=== PATIENT | female | born 1960 | race Caucasian/White ===

== ENCOUNTER → 2016-07-08 | Outpatient (CLI) | payer BC ==
[~2016-07-08] MED LIST: ASPIRIN E.C. 8181 MG PO; CELEXA20 MG PO; FLAXSEED OIL1 CAP PO; METFORMIN PO; MULTIPLE VITAMI1 CAP PO; OMEGA 31000 MG PO; VITAMIN D35000 IU PO; XANAX0.5 MG PO; ZOCOR80 MG PO
== END ==
LOC: LAB 07:10
DX: E11.9 Type 2 diabetes mellitus without complications (principal); I10 Essential (primary) hypertension; E78.2 Mixed hyperlipidemia

== ENCOUNTER → 2016-07-29 | Outpatient (CLI) | payer BC | LOC: MAMMO 11:21 | DX: Z12.31 Encounter for screening mammogram for malignant neoplasm of breast (principal) | CPT/HCPCS: G0202 ==

== ENCOUNTER → 2017-08-04 | Outpatient (CLI) | payer BC ==
[2013-05-31 08:30] VITALS: BP 132/81
[2017-08-04 09:43] LABS: HEMATOCRIT 43.3 % (37.0-47.0); HEMOGLOBIN 14.7 g/dL (12.5-16.0); MEAN PLATELET VOLUME 11.1 fl (7.4-10.4); RED BLOOD COUNT 4.77 M/mm3 (4.10-5.30); RED CELL DISTRIBUTION WIDTH 13.4 % (11.5-14.5); WHITE BLOOD COUNT 7.9 K/mm3 (4.8-10.8)
[2017-08-04 09:54] LABS: ALBUMIN 4.3 g/dL (3.5-5.0); BUN/CREATININE RATIO 20.7 (6.0-26.0); CALCIUM 9.5 mg/dL (8.4-10.2); POTASSIUM 4.4 mmol/L (3.6-5.0); TOTAL BILIRUBIN 0.4 mg/dL (0.2-1.3); TOTAL PROTEIN 7.5 g/dL (6.3-8.2)
== END ==
LOC: LAB 09:29
PROVIDERS: Family Medicine
DX: E11.9 Type 2 diabetes mellitus without complications (principal); E78.2 Mixed hyperlipidemia

== ENCOUNTER → 2020-04-09 | Outpatient (CLI) | payer BC ==
[2013-05-31 08:30] VITALS: BP 132/81
[2020-04-09 16:12] LABS: EOS # 0.4 (0.04-0.40); EOS % 3.3 % (1.0-5.0); HEMATOCRIT 43.1 % (37.0-47.0); HEMOGLOBIN 14.8 g/dL (12.5-16.0); MEAN CELL VOLUME 90 fl (78-100); MEAN CORPUSCULAR HEMOGLOBIN 31 pg (27-31); MEAN CORPUSCULAR HGB CONC 34 g/dL (33-37); MEAN PLATELET VOLUME 10.7 fl (7.4-10.4); NEU # 6.2 (1.40-6.50); PLATELET COUNT 269 K/mm3 (130-400); RED CELL DISTRIBUTION WIDTH 13.2 % (11.5-14.5); WHITE BLOOD COUNT 12.2 K/mm3 (4.8-10.8)
[2020-04-09 16:17] LABS: LYMPH# 4.6 (1.50-4.00)
[2020-04-09 16:18] LABS: ALBUMIN 4.5 g/dL (3.4-4.8); POTASSIUM 4.3 mmol/L (3.5-5.1)
[2020-04-09 16:19] LABS: CALCIUM 9.9 mg/dL (8.3-10.5)
[2020-04-09 16:21] LABS: TOTAL PROTEIN 7.5 g/dL (6.2-8.1)
[2020-04-09 16:23] LABS: TOTAL BILIRUBIN 0.3 mg/dL (0.2-1.2)
== END ==
LOC: LAB 15:52
PROVIDERS: Family Medicine
DX: Z00.00 Encounter for general adult medical examination without abnormal findings (principal); E11.37X3 Type 2 diabetes mellitus with diabetic macular edema, resolved following treatment, bilateral; E78.2 Mixed hyperlipidemia

== ENCOUNTER 2020-06-16 11:35 | Emergency (ER) | payer BC ==
[2020-06-16] MEDS ORDERED: LOSARTAN POTASS25 MG PO (11:49)
[2020-06-16 12:48] LABS: EOS # 0.2 (0.04-0.40); EOS % 2.2 % (1.0-5.0); HEMATOCRIT 43.2 % (37.0-47.0); HEMOGLOBIN 14.6 g/dL (12.5-16.0); LYMPH# 2.4 (1.50-4.00); MEAN CELL VOLUME 91 fl (78-100); MEAN CORPUSCULAR HEMOGLOBIN 31 pg (27-31); MEAN CORPUSCULAR HGB CONC 34 g/dL (33-37); NEU # 6.3 (1.40-6.50); PLATELET COUNT 238 K/mm3 (130-400); RED BLOOD COUNT 4.73 M/mm3 (4.10-5.30)
[2020-06-16 12:55] LABS: ALBUMIN 4.4 g/dL (3.4-4.8); POTASSIUM 4.3 mmol/L (3.5-5.1); SODIUM 142 mmol/L (136-145)
[2020-06-16 12:56] LABS: CALCIUM 9.3 mg/dL (8.3-10.5)
[2020-06-16 12:57] LABS: GLUCOSE 87 mg/dL (65-105); TOTAL PROTEIN 7.1 g/dL (6.2-8.1)
[2020-06-16 12:58] LABS: CARBON DIOXIDE 25 mmol/L (23-31)
[2020-06-16 12:59] LABS: TOTAL BILIRUBIN 0.3 mg/dL (0.2-1.2)
[2020-06-16 13:03] LABS: AST-SGOT 14 U/L (5-34)
[2020-06-16 13:04] LABS: ALT/SGPT 19 U/L (0-55)
[2020-06-16 13:36] LABS: TROPONIN-I < 0.03 ng/mL (<0.030)
[2020-06-16 14:45] VITALS: BP 138/70
[2020-06-16 15:26] LABS: URINE APPEARANCE CLEAR; URINE BILIRUBIN NEGATIVE (NEGATIVE); URINE BLOOD NEGATIVE (NEGATIVE); URINE COLOR YELLOW; URINE GLUCOSE NEGATIVE (NEGATIVE); URINE KETONE NEGATIVE (NEGATIVE); URINE LEUKOCYTE ESTERASE NEGATIVE (NEGATIVE); URINE NITRATE NEGATIVE (NEGATIVE); URINE PROTEIN(semi-quant) TRACE mg/dL (NEGATIVE); URINE UROBILINOGEN NORMAL (NORMAL)
[2020-06-16 15:27] LABS: URINE WBC 0-1 /hpf (0-3)
== END 2020-06-16 14:22 | disposition home or self-care (01) ==
LOC: ED 11:35
PROVIDERS: Family Medicine
DX: E86.0 Dehydration (principal); F43.9 Reaction to severe stress, unspecified; I10 Essential (primary) hypertension; E11.9 Type 2 diabetes mellitus without complications; F41.9 Anxiety disorder, unspecified; F17.210 Nicotine dependence, cigarettes, uncomplicated; Z79.82 Long term (current) use of aspirin; Z79.84 Long term (current) use of oral hypoglycemic drugs
CPT/HCPCS: J7030

== ENCOUNTER → 2020-06-28 | Outpatient (CLI) | payer BC ==
[2020-06-16 14:45] VITALS: BP 138/70
[~2020-06-28] MED LIST changes: +LOSARTAN POTASS25 MG PO
== END ==
LOC: CARDREHAB 08:01
DX: Z01.818 Encounter for other preprocedural examination (principal); R07.9 Chest pain, unspecified
CPT/HCPCS: A9500

== ENCOUNTER → 2021-12-29 | Outpatient (CLI) | payer BC | LOC: LAB 10:42 | DX: Z20.822 Contact with and (suspected) exposure to COVID-19 (principal) ==

== ENCOUNTER → 2023-07-27 | Outpatient (CLI) | payer BC ==
[2023-07-27 09:15] LABS: BASO # 0.04 K/mm3 (0.02-0.10); EOS # 0.26 K/mm3 (0.04-0.40); EOS % 2.4 % (1.0-5.0); HEMATOCRIT 44.8 % (37.0-47.0); LYMPH# 3.74 K/mm3 (1.50-4.00); MEAN CELL VOLUME 92 fl (78-100); MEAN CORPUSCULAR HEMOGLOBIN 31 pg (27-31); MEAN CORPUSCULAR HGB CONC 34 g/dL (33-37); MEAN PLATELET VOLUME 10.7 fl (7.4-10.4); MONO # 0.82 K/mm3 (0.20-0.80); NEU # 6.14 K/mm3 (1.40-6.50); PLATELET COUNT 245 K/mm3 (130-400); RED BLOOD COUNT 4.88 M/mm3 (4.10-5.30); RED CELL DISTRIBUTION WIDTH 12.8 % (11.5-14.5)
[2023-07-27 09:27] LABS: ALBUMIN 4.5 g/dL (3.4-4.8)
[2023-07-27 09:28] LABS: CALCIUM 9.7 mg/dL (8.3-10.5)
[2023-07-27 09:30] LABS: TOTAL PROTEIN 7.3 g/dL (6.2-8.1)
[2023-07-27 09:32] LABS: TOTAL BILIRUBIN 0.3 mg/dL (0.2-1.2)
== END ==
LOC: LAB 08:51
PROVIDERS: Family Medicine
DX: E78.5 Hyperlipidemia, unspecified (principal); E11.37X3 Type 2 diabetes mellitus with diabetic macular edema, resolved following treatment, bilateral; I10 Essential (primary) hypertension